=== PATIENT | male | born 1955 | race Caucasian/White ===

== ENCOUNTER 2018-10-08 07:03 | Day surgery (SDC) | payer OTHER ==
[~2018-10-08] VITALS: Ht 188 cm; Wt 102.1 kg
[~2018-10-08 07:03] MED LIST: ZESTORETIC 20-1 EACH PO
--- NOTE | 2018-10-08 09:04 | NUR ---
10/08/18 0904 Anjelica Estevez 0855- PT ARRIVES TO PACU ALERT. PT REPORTS NO PAIN OR NAUSEA. RESP EVEN AND UNLABORED. OXYGEN SAT MID TO HIGH 90'S ON RA. 09- PT SITTING UP IN BED DRINKING CRANBERRY JUICE. TOLERATING WELL. PT REPORTS NO DIZZINESS, NAUSEA, OR PAIN. 09- DR. KRISHNAMURTHY TALKING WITH THE PT AT THE BEDSIDE.
--- NOTE | 2018-10-08 14:12 | NUR ---
PT RESTING COMFORTABLY IN RM. FIRST SCOPE, HAD FEW QUESTIONS. APPEARS TO HAVE DEALT WITH PREP APPROPRIATELY. WILL FOLLOW NEEDED
--- NOTE | 2018-10-08 17:10 | OR ---
[facility] [address], [place] [address] Signed DATE OF OPERATION: 10/08/2018 SURGEON: Tl Krishnamurthy MD PREOPERATIVE DIAGNOSIS: Colon screening. POSTOPERATIVE DIAGNOSES: 1. Sigmoid diverticulosis. 2. Hypertrophied anal papilla x1. PROCEDURE PERFORMED: Total colonoscopy to cecum. ANESTHESIA: Intravenous sedation, fentanyl 100 mcg, Versed 5 mg. PREOPERATIVE ANTIBIOTIC ADMINISTRATION: Ancef 2 g. INDICATION: This 62-year-old man is a patient of Dr. Velasco and has never undergone colonoscopy in the past. He is symptom free having no bleeding, diarrhea, or constipation. 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 Rommel Case. He is admitted at this time to undergo screening colonoscopy. He understands the risks of bleeding, infection, and perforation. FINDINGS: The prep was excellent. Complete colonoscopy was undertaken to the cecum without question. He had diverticula of the sigmoid and a hypertrophied anal papilla on retroflex view. There was no sign of polyps. DESCRIPTION OF PROCEDURE: The patient was brought to the endoscopy suite, placed in lateral decubitus position, given intravenous sedation to the point of slurred speech and nystagmus. Digital rectal examination showed a small nodule at the dentate line. An Olympus video colonoscope was passed in the rectum and manipulated throughout the colon, ultimately intubating the cecum itself. The ileocecal valve and appendiceal orifice were normal. The scope was withdrawn from that point and examination undertaken showed no sign of abnormality other than diverticula of the sigmoid and left colon. Retroflex view of the rectum confirmed Electronically Signed By: TL KRISHNAMURTHY MD 10/08/18 1710 PATIENT NAME: ELY CAUSEY OPERATIVE REPORT DATE OF : 51 REPORT #: [id number] PHYSICIAN: TL KRISHNAMURTHY MD PCP: POLA VELASCO MD REPORT IS CONFIDENTIAL AND NOT TO BE RELEASED WITHOUT AUTHORIZATION [facility] [address], [place] [address] Signed a hypertrophied anal papilla. There was minimal hemorrhoidal changes. Scope was straightened, withdrawn, and removed. The patient was taken to recovery room in good condition. CONCLUDING DIAGNOSIS: Diverticular changes of sigmoid and left colon, for which a high-fiber diet is recommended. A significantly hypertrophied anal papilla. It is almost certainly benign. Excision could be considered for both diagnosis and for what may likely be episodic prolapse. MD LETICIA Lee/LUIS /[id number] cc: Pola Velasco MD Copies: POLA VELASCO MD ~ Electronically Signed By: TL KRISHNAMURTHY MD 10/08/18 1710 PATIENT NAME: ELY CAUSEY OPERATIVE REPORT DATE OF : 51 REPORT #: [id number] PHYSICIAN: TL KRISHNAMURTHY MD PCP: POLA VELASCO MD REPORT IS CONFIDENTIAL AND NOT TO BE RELEASED WITHOUT AUTHORIZATION
== END 2018-10-08 09:25 | disposition home or self-care (01) ==
LOC: OPS 07:03 → DS 07:03 → OPS 08:30 → DS 08:30 → OPS 09:25
PROVIDERS: Surgery
PROC: 0DJD8ZZ Inspection of Lower Intestinal Tract, Via Natural or Artificial Opening Endoscopic (ICD-10-PCS; principal; 2018-10-08 08:30)
DX: Z12.11 Encounter for screening for malignant neoplasm of colon (principal); K62.89 Other specified diseases of anus and rectum; K57.30 Diverticulosis of large intestine without perforation or abscess without bleeding; I10 Essential (primary) hypertension; Z96.659 Presence of unspecified artificial knee joint
CPT/HCPCS: J0690; J2250; J3010; J7120

== ENCOUNTER 2019-11-18 14:44 | Emergency (ER) | payer MEDICARE, OTHER ==
[~2019-11-18] VITALS: Ht 188 cm; Wt 104.3 kg
[2019-11-18] MEDS ORDERED: PREDNISONE20 MG PO (15:54)
== END 2019-11-18 16:26 | disposition home or self-care (01) ==
LOC: ED 14:44
DX: R51 Headache (principal); R21 Rash and other nonspecific skin eruption; R79.89 Other specified abnormal findings of blood chemistry; I10 Essential (primary) hypertension; Z87.891 Personal history of nicotine dependence; Z79.899 Other long term (current) drug therapy
CPT/HCPCS: 80053; 85025; 96361; 96374; 96375; 99284-25; J0780; J1100; J1200; J1885; J7030